=== PATIENT | female | born 1980 | race Caucasian/White ===

== ENCOUNTER → 2018-01-11 | Outpatient (CLI) | payer BC ==
--- NOTE | 2018-01-11 15:01 | MM ---
Reason for exam: screening (asymptomatic). Baseline mammogram. History: Patient had first child at age 31. Physical Findings: Nurse did not find any significant physical abnormalities on exam. MG Screening Mammo w CAD Bilateral CC and MLO view(s) were taken. No prior studies available for comparison. The breast tissue is heterogeneously dense. This may lower the sensitivity of mammography. No suspicious abnormality. These results were verbally communicated with the patient and result sheet given to the patient on 01/11/18. ASSESSMENT: Negative, BI-RAD 1 RECOMMENDATION: Routine screening mammogram of both breasts in 1 year.
== END | disposition home or self-care (01) ==
LOC: RADMAMWWP 13:42
PROVIDERS: ATTEND Obstetrics & Gynecology
DX: Z12.31 Encounter for screening mammogram for malignant neoplasm of breast (principal)
CPT/HCPCS: 77067

== ENCOUNTER → 2021-03-08 | Outpatient (CLI) | payer BC ==
--- NOTE | 2021-03-09 12:00 | MM ---
Reason for exam: screening (asymptomatic). Last mammogram was performed 3 years and 2 months ago. History: Patient had first child at age 31. Physical Findings: A clinical breast exam by your physician is recommended on an annual basis and results should be correlated with mammographic findings. MG 3D Screening Mammo W/Cad Bilateral CC, MLO, and XCCL view(s) were taken. Prior study comparison: January 11, 2018, bilateral MG screening mammo w CAD. The breast tissue is heterogeneously dense. This may lower the sensitivity of mammography. There are benign appearing round calcifications bilaterally. There is no discrete abnormality. ASSESSMENT: Benign, BI-RAD 2 RECOMMENDATION: Routine screening mammogram of both breasts in 1 year.
== END | disposition home or self-care (01) ==
LOC: RADMAMWWP 14:26
PROVIDERS: ATTEND Obstetrics & Gynecology
DX: Z12.31 Encounter for screening mammogram for malignant neoplasm of breast (principal)
CPT/HCPCS: 77063; 77067

== ENCOUNTER → 2021-04-19 | Outpatient (CLI) | payer BC ==
--- NOTE | 2021-04-19 09:14 | MR ---
EXAMINATION TYPE: MR brain/lspine wo/w con DATE OF EXAM: 04/19/2021 COMPARISON: NONE HISTORY: Anesthesia of skin, ataxic gait, amnesia, incontinence. TECHNIQUE: Multiplanar, multisequence images of the brain and brainstem along with lumbar spine overall performe d without and with IV contrast, utilizing 7 mL intravenous Gadavist FINDINGS: BRAIN: FINDINGS: Diffusion weighted images demonstrate no evidence of a recent infarct or other diffusion ab normality. There is no extra-axial fluid collection or significant white matter signal abnormality. The ventricular system and cisternal spaces are normal in size and appearance. The brain volume is age appropriate. Midline structures demonstrate normal morphology. The craniocervical junction appears within normal limits. Post contrast images demonstrate no abnormal enhancement. The dural venous sinuses appear pa tent. The visualized sinuses are clear and the globes are intact. IMPRESSION: No significant findings identified to account for patient's clinical symptoms. L-SPINE: Sagittal images of the lumbar spine show vertebral body heights and alignment to appear satisfactory. There is disc desiccation at L5-S1 level with mild disc space narrowing otherwise this show normal h eight and hydration. The conus medullaris is normal in position and signal and imaging inferior L1 l evel. Small hemangioma involving the superior L2 vertebra sagittal image 9. No suspicious postcontras t enhancement. Axial images show T12-L1, L1-L2, L2-L3, L3-L4 levels all to appear within normal limits. Axial images at L4-L5 level show mild facet arthropathy bilaterally. Spinal canal is preserved. Bilat eral neural foramina. Axial images at the L5-S1 level mild broad-based posterior disc protrusion with spinal canal is prese rved. There is mild facet arthropathy bilaterally. Patent Bilateral neural foramina. The paraspinal muscle bulk is maintained. Patient has little intra-abdominal fat. IMPRESSION: Mild degenerative changes in the lower lumbar spine. No significant finding to account fo r patient's clinical symptoms.
== END | disposition home or self-care (01) ==
LOC: RADMRIMAIN 06:00
PROVIDERS: ATTEND Nurse Practitioner Family
DX: M47.816 Spondylosis without myelopathy or radiculopathy, lumbar region (principal); R41.3 Other amnesia; R26.0 Ataxic gait; R32 Unspecified urinary incontinence
CPT/HCPCS: 70553; 72158; A9585

== ENCOUNTER → 2021-08-11 | Outpatient (CLI) | payer BC ==
--- NOTE | 2021-08-11 11:37 | MR ---
MRI CERVICAL SPINE: CLINICAL HISTORY: Tingling and numbness in feet for 6 months. TECHNIQUE: Multiplanar, multisequence imaging of the cervical spine is performed without and with IV contrast, 7 cc of gadolinium was given intravenously. COMPARISON: None. FINDINGS: Sagittal images of the cervical spine show the craniocervical junction to appear within nor mal limits. The cervical and upper thoracic spinal cord is normal in course, caliber, and signal. V ertebral alignment is anatomic. The vertebral body and intravertebral disk heights are normal. The bone marrow signal intensity is within normal limits. No abnormal postcontrast enhancement is seen. Axial images show there is no significant focal disk disease, spinal canal stenosis, neural foraminal narrowing, or spinal cord compromise at any cervical level. IMPRESSION: Negative MRI of the cervical spine, no significant abnormality is seen to account for lucia figueroa's clinical symptoms.
== END | disposition home or self-care (01) ==
LOC: RADMRIMAIN 06:12
PROVIDERS: ATTEND Nurse Practitioner Family
DX: R26.0 Ataxic gait (principal); G60.0 Hereditary motor and sensory neuropathy
CPT/HCPCS: 72156; A9585

== ENCOUNTER → 2022-03-10 | Outpatient (CLI) | payer BC ==
--- NOTE | 2022-03-11 11:26 | MM ---
Reason for Exam: Screening (asymptomatic). Last screening mammogram was performed 12 month(s) ago. Patient History: Menarche at age 13. First Full-Term at age 31. Late child-bearing (after 30). Premenopausal. Patient has history of breast feeding. Last menstrual period: 02/23/2022 Risk Values: Ginna 5 year model risk: 0.8%. NCI Lifetime model risk: 13.5%. Prior Study Comparison: 01/11/2018 Bilateral Screening Mammogram, [facility]. 03/08/2021 Bilateral Screening Mammogram, [facility]. Tissue Density: The breast tissue is heterogeneously dense. This may lower the sensitivity of mammography. Findings: Analyzed By CAD. There is no suspicious group of microcalcifications or new suspicious mass in either breast. Overall Assessment: Negative, BI-RAD 1 Management: Screening Mammogram of both breasts in 1 year. 1. Patient should continue monthly self breast exams. 2. A clinical breast exam by your physician is recommended on an annual basis. 3. This exam should not preclude additional follow-up of suspicious palpable abnormalities. Electronically signed and approved by: Palmer Black M.D. Radiologist
== END | disposition home or self-care (01) ==
LOC: RADMAMWWP 13:11
PROVIDERS: ATTEND Obstetrics & Gynecology
DX: Z12.31 Encounter for screening mammogram for malignant neoplasm of breast (principal)
CPT/HCPCS: 77063; 77067

== ENCOUNTER → 2023-03-14 | Outpatient (CLI) | payer BC ==
--- NOTE | 2023-03-15 19:18 | MM ---
Reason for Exam: Screening (asymptomatic). Last screening mammogram was performed 12 month(s) ago. Patient History: Menarche at age 13. First Full-Term at age 31. Late child-bearing (after 30). Premenopausal. Patient has history of breast feeding. Last menstrual period: 02/16/2023 Risk Values: Ginna 5 year model risk: 0.9%. NCI Lifetime model risk: 13.4%. Prior Study Comparison: 01/11/2018 Bilateral Screening Mammogram, [facility]. 03/08/2021 Bilateral Screening Mammogram, [facility]. 03/10/2022 Bilateral MG 3D screening mammo w/cad, [facility]. Tissue Density: The breast tissue is heterogeneously dense. This may lower the sensitivity of mammography. Findings: Analyzed By CAD. There is no suspicious group of microcalcifications or new suspicious mass in either breast. Overall Assessment: Negative, BI-RAD 1 Management: Screening Mammogram of both breasts in 1 year. . Patient should continue monthly self-breast exams. A clinical breast exam by your physician is recommended on an annual basis. This exam should not preclude additional follow-up of suspicious palpable abnormalities. Note on Ginna scores and lifetime risk: 1. A Ginna score greater than 3% is considered moderate risk. If this is the case, consider specialist referral to assess eligibility for a risk reducing agent. 2. If overall lifetime risk for the development of breast cancer is 20% or higher, the patient may qualify for future screening with alternating mammogram and breast MRI. Electronically signed and approved by: Palmer Black M.D. Radiologist
== END | disposition home or self-care (01) ==
LOC: RADMAMWWP 13:36
PROVIDERS: ATTEND Obstetrics & Gynecology
DX: Z12.31 Encounter for screening mammogram for malignant neoplasm of breast (principal)
CPT/HCPCS: 77063; 77067

== ENCOUNTER → 2023-06-12 | Outpatient (CLI) | payer BC ==
--- NOTE | 2023-06-12 08:40 | MR ---
EXAMINATION TYPE: MR brain wo/w con DATE OF EXAM: 06/12/2023 7:06 AM CLINICAL INDICATION:Female, 43 years old with history of R29.898; PHH, Numbness, tingling and weaknes s in left leg. COMPARISON: 08/11/2021, 04/19/2021. TECHNIQUE: Multi planar, multi sequence imaging was performed through the brain including: T1, T2, In version recovery, susceptibility weighted imaging and gradient echo imaging and Diffusion weighted im aging. The patient was then given intravenous contrast and multi planar, T1 fat-saturation images wer e obtained. IV Contrast: 7 cc Gadavist FINDINGS: There are few scattered white matter changes bilaterally . Examples include. Right temporal lobe series 602 image 80, image 13, right parietal region periventricular white matter image 17, lef t parietal deep white matter image 17 The schmitt-white junctions, ventricular system, basal cisterns appear unremarkable. Diffusion-weighted imaging shows no evidence of restricted diffusion to suggest acute/subacute infarct. Intracranial ar terial flow voids are maintained. Midline structures show no abnormality. The susceptibility weighted images do not reveal any evidence for micro-hemorrhage. Blooming artifact within the left frontal lo be with findings compatible with developmental venous anomaly. After administration of gadolinium, no abnormal enhancement is seen. The bone marrow signal is within normal limits. Paranasal sinuses and mastoid air cells: Mild scattered paranasal sinus disease. Visualized orbits: Orbital contents are intact. IMPRESSION: 1. No evidence of intracranial mass, acute/subacute infarct, or abnormal enhancement. 2. No evidence for active demyelination, Minimal scattered white matter changes which are atypical fo r a patient of 43 years. Correlate for demyelination. 3. Left frontal lobe developmental venous anoma ly.
== END | disposition home or self-care (01) ==
LOC: RADMRIMAIN 06:30
PROVIDERS: ATTEND Psychiatry & Neurology Neurology
DX: R90.82 White matter disease, unspecified (principal); R29.898 Other symptoms and signs involving the musculoskeletal system
CPT/HCPCS: 70553; A9585

== ENCOUNTER → 2023-06-30 | Outpatient (CLI) | payer BC ==
--- NOTE | 2023-07-01 02:44 | MR ---
EXAMINATION TYPE: MR cspine/tspine wo/w con DATE OF EXAM: 06/30/2023 COMPARISON: MRI cervical spine August 11, 2021 HISTORY: Abn MRI Brain, evaluate for demyelination, weakness, numbness/tingling left side, mainly lt leg, headaches TECHNIQUE: Multiplanar, multisequence imaging of cervical and thoracic spine are performed without an d with IV contrast, patient given 7 cc of gadolinium. FINDINGS: C-SPINE: Sagittal images of the cervical spine show the craniocervical junction to main within normal limits. The cervical and upper thoracic spinal cord remains normal in course, caliber, and signal. Vertebra l alignment is stable and satisfactory. The vertebral body and intravertebral disk heights remaining normal. The bone marrow signal intensity is within normal limits. No abnormal postcontrast enhancem ent is seen. Axial images show there is no significant focal disk disease, spinal canal stenosis, neural foraminal narrowing, or spinal cord compromise at any cervical level. IMPRESSION: Unremarkable study. No significant change from prior. T-SPINE: Spinal cord shows normal course and caliber as it courses the thoracic spine. There is focal subtle T 2 hyperintense lesion at T9 level along posterior aspect sagittal image 9. Vertebral body heights and alignment are satisfactory. Small posterior disc herniations at C6-C7 and T7-T8 level minimally effa cing anterior thecal sac and sagittal image 10. Bone marrow signal intensity is preserved. No abnorma l enhancement is seen. Axial images redemonstrated a right paracentral disc protrusion effacing the anterolateral thecal sac at T6-T7 level with some mass effect along the ventral surface of spinal cord. Abnormal signal in th e spinal cord is confirmed on axial image 16 at the T9 vertebral body level. No Abnormal enhancement is present. Incidental 4 mm round T2 hyperintense lesion in left thyroid lobe axial image 22. IMPRESSION: There is focal T2 hyperintense lesion posterior T9 level suspicious for plaque from demye linating disease. No abnormal enhancing lesions are evident.
== END | disposition home or self-care (01) ==
LOC: RADMRIMAIN 20:30
PROVIDERS: ATTEND Psychiatry & Neurology Neurology
DX: R93.7 Abnormal findings on diagnostic imaging of other parts of musculoskeletal system (principal); R94.02 Abnormal brain scan; G37.9 Demyelinating disease of central nervous system, unspecified; R53.1 Weakness; R20.2 Paresthesia of skin; R51.9 Headache, unspecified
CPT/HCPCS: 72156; 72157; A9585

== ENCOUNTER → 2024-01-20 | Outpatient (CLI) | payer BC ==
--- NOTE | 2024-02-07 08:59 | MR ---
Site ID synapse default Patient Mariangel Son R ID [id number] Age/Gender: 43Y, F Order # N/A Procedure MR brain & cervical spine wo/w con Date 01/20/2024 1:09:22 PM EXAMINATION TYPE: MR brain/cspine wo/w DATE OF EXAM: 01/20/2024 COMPARISON: MR C-spine/T-spine to 224, MR brain 06/12/2023, MR C-spine 08/11/2021, MRI brain L-spine HISTORY: Multiple sclerosis, follow-up TECHNIQUE: Multiplanar, multisequence images of the brain and cervical spine is performed without and with IV co ntrast, utilizing 7 mL intravenous Gadavist . MRI BRAIN: FINDINGS: Diffusion weighted images demonstrate no evidence of a recent infarct or other diffusion ab normality. There is no extra-axial fluid collections. Stable few scattered white matter changes bila terally. Example includes left subcortical parietal lobe 4.5 mm lesion (series 1602, image 21) and a right parietal lobe periventricular 4.4 mm lesion (series 1602, image 21). No new definitive white ma tter lesions identified. No corresponding contrast. No other regions of abnormal contrast. The ventri cular system and cisternal spaces are normal in size and appearance. Blooming artifact within the lef t frontal lobe is redemonstrated most consistent with a developmental venous anomaly. The brain volum e is age appropriate. Midline structures demonstrate normal morphology. The craniocervical junction appears within normal limits. The schmitt-white junction is, ventricular system, basal cisterns unremarkable. The dural venou s sinuses appear patent. The visualized sinuses are clear and the globes are intact. The bone marrow signal is within normal limits. IMPRESSION: 1. No evidence of intracranial mass, acute/subacute infarct, or abnormal enhancement. 2. Stable few scattered white matter changes without enhancement. No new white matter lesions. No ev idence for active demyelination. 3. Redemonstration of left frontal lobe developmental venous anomaly. MRI CERVICAL SPINE: FINDINGS: Alignment: The cervical vertebral bodies have preserved heights. Alignment is within normal limits gi ángela patient positioning. Bones: Bone signal is within normal limits. Cord: The spinal cord is unremarkable with regards to their signal intensity and morphology. No abnor mal contrast enhancement. Discs: Mild multilevel disc desiccation is present. C2-C3: No significant disc pathology. The spinal canal is patent. No neural foraminal stenosis. C3-C4: No significant disc pathology. The spinal canal is patent. No neural foraminal stenosis. C4-C5: No significant disc pathology. The spinal canal is patent. No neural foraminal stenosis. C5-C6: No significant disc pathology. The spinal canal is patent. No neural foraminal stenosis. C6-C7: No significant disc pathology. The spinal canal is patent. No neural foraminal stenosis. C7-T1: No significant disc pathology. The spinal canal is patent. No neural foraminal stenosis. Other: Tiny subcentimeter nonenhancing nodule within the left thyroid lobe redemonstrated. IMPRESSION: 1. No evidence for disc herniation or significant spinal canal stenosis. No significant degenerative disc disease. 2. No cervical spinal cord abnormal lesions or enhancement again.
== END | disposition home or self-care (01) ==
LOC: RADMRIMAIN 13:25
PROVIDERS: ATTEND Psychiatry & Neurology Neurology
DX: G35 Multiple sclerosis (principal)
CPT/HCPCS: 70553; 72156; A9585

== ENCOUNTER → 2024-01-26 | Outpatient (CLI) | payer BC ==
--- NOTE | 2024-01-27 18:42 | MR ---
EXAMINATION TYPE: MR thoracic spine wo/w con DATE OF EXAM: 01/26/2024 9:48 PM CLINICAL INDICATION: Female, 43 years old with history of G35 MULTIPLE SCLEROSIS, MS follow up, [place] e compare to prior COMPARISON: 06/30/2023 TECHNIQUE: Multi planar, multi sequence imaging was performed utilizing: T1-weig hted, short-tau inversion recovery and T2-weighted of the thoracic spine. IV Contrast: 7 cc Gadavist (none if empty) FINDINGS: Alignment: Alignment is within normal limits. Vertebral bodies have preserved heights. Spinal cord: Abnormal cord signal at the level of T9 descending 16 mm is similar prior. Discs: T6-T7 central and right central disc protrusion which displaces the spinal cord slightly. Osseous structures: No abnormal bony edema on inversion recovery sequences. Multilevel osteophyte for mation and facet joint arthropathy. Scattered disc space narrowing. L1 vertebral body height T1/high T2 probable vertebral body hemangioma. IMPRESSION: 1. Similar abnormal cord signal at level T9. No new areas of abnormal white matter change. No abnorm al postcontrast enhancement 2. T6-T7 central disc protrusion which mildly displaces the spinal cord. 3. Mild disc degeneration changes without evidence of significant spinal canal or neural foraminal s tenosis.
== END | disposition home or self-care (01) ==
LOC: RADMRIMAIN 21:00
PROVIDERS: ATTEND Psychiatry & Neurology Neurology
DX: G35 Multiple sclerosis (principal); M51.24 Other intervertebral disc displacement, thoracic region; M51.34 Other intervertebral disc degeneration, thoracic region
CPT/HCPCS: 72157; A9585

== ENCOUNTER → 2024-03-15 | Outpatient (CLI) | payer BC ==
--- NOTE | 2024-03-19 18:45 | MM ---
Reason for Exam: Screening (asymptomatic). Last screening mammogram was performed 12 month(s) ago. Patient History: Menarche at age 13. First Full-Term at age 31. Late child-bearing (after 30). Premenopausal. Patient has history of breast feeding. Last menstrual period: 03/07/2024 Risk Values: Ginna 5 year model risk: 1.0%. NCI Lifetime model risk: 13.2%. Prior Study Comparison: 03/08/2021 Bilateral Screening Mammogram, [facility]. 03/10/2022 Bilateral MG 3D screening mammo w/cad, [facility]. 03/14/2023 Bilateral MG 3D screening mammo w/cad, [facility]. Tissue Density: The breasts are heterogeneously dense, which may obscure small masses. Findings: Analyzed By CAD. There is no suspicious group of microcalcifications or new suspicious mass in either breast. Overall Assessment: Negative, BI-RAD 1 Management: Screening Mammogram of both breasts in 1 year. . Patient should continue monthly self-breast exams. A clinical breast exam by your physician is recommended on an annual basis. This exam should not preclude additional follow-up of suspicious palpable abnormalities. Note on Ginna scores and lifetime risk: 1. A Ginna score greater than 3% is considered moderate risk. If this is the case, consider specialist referral to assess eligibility for a risk reducing agent. 2. If overall lifetime risk for the development of breast cancer is 20% or higher, the patient may qualify for future screening with alternating mammogram and breast MRI. [facility], , 03/19/2024 6:42 PM. Electronically signed and approved by: Palmer Black M.D. Radiologist
== END | disposition home or self-care (01) ==
LOC: RADMAMWWP 13:47
PROVIDERS: ATTEND Family Medicine
DX: Z12.31 Encounter for screening mammogram for malignant neoplasm of breast
CPT/HCPCS: 77063; 77067